=== PATIENT | female | born 1965 | race Caucasian/White ===

== ENCOUNTER 2017-01-23 06:08 | Day surgery (SDC) | payer OTHER ==
[~2017-01-23] VITALS: Ht 152.4 cm; Wt 101.8 kg
[~2017-01-23 06:08] MED LIST: ALBU8HFA IH; AMLO2.5T PO; ASPI81TA42 PO; ATEN50TA PO; ATOR40TA28 PO; CARV3 PO; FAMO20 PO; FLUT16H NASAL; GABA-531 PO; HYDR25TA PO; LEVO200 PO; MELO-273 PO; METF500T4 PO; MOME13HF IH; OMEP20 PO; PRED10 PO; TEMA15CA PO; TRIAMCINOLONE CREAM TP
[2017-01-23] MEDS ORDERED: SODIUM CHLORIDE 0.9% 1,000 ML IV ONE ×2 (06:16→07:00)
[2017-01-23] MEDS ORDERED: LOSA25TA21 PO (06:27)
[2017-01-23] MEDS ORDERED: LOSA50TA37 PO (06:33)
[2017-01-23 07:02] LABS: GLUCOSE,POINT OF CARE 95 MG/DL (70-110)
[2017-01-23] MEDS ORDERED: FentaNYL CITRATE-PF 100 MCG/2 ML VIAL ONE (07:56)
[2017-01-23] MEDS ORDERED: MIDAZOLAM HCL 2 MG/2 ML VIAL ONE (07:56)
[2017-01-23] MEDS ORDERED: MethylPREDNISolone SOD SUCC 125 MG/2 ML VIAL IVP ONE (08:45)
[2017-01-23] MEDS ORDERED: MethylPREDNISolone SOD SUCC 125 MG/2 ML VIAL ONE (08:45)
[2017-01-23] MEDS ORDERED: LIDOCAINE HCL 2% 30 ML JELLY TP ONE (17:30)
[2017-01-23] MEDS ORDERED: EPINEPHrine 1:1,000 [1 MG/ML] AMP ET ONE (17:30)
[2017-01-23] MEDS ORDERED: LIDOCAINE HCL 4% 50 ML SOLUTION TP ONE (17:30)
[2017-01-23] MEDS ORDERED: ALBUTEROL SULFATE 2.5 MG/0.5 ML NEB SOLUTION NEB ONE (17:30)
[2017-01-23] MEDS ORDERED: BENZOCAINE 20% 50 MCG/SPRAY 57 GM TP ONE (17:30)
[2017-01-23] MEDS ORDERED: OXYGEN THERAPY IH SCH (20:00)
== END 2017-01-23 10:10 | disposition home or self-care (01) ==
LOC: SURGERY 06:08
PROVIDERS: ATTEND Internal Medicine Critical Care Medicine
DX: J38.4 Edema of larynx (principal); B37.0 Candidal stomatitis; E11.9 Type 2 diabetes mellitus without complications; J45.909 Unspecified asthma, uncomplicated; Z87.891 Personal history of nicotine dependence; Z96.89 Presence of other specified functional implants; Z87.442 Personal history of urinary calculi
CPT/HCPCS: 31623; 31624; 71010; 82962; 87015; 87070; 87101; 87205; 87220; 93005; J0171; J2250; J2930; J3010; J7030; 87147; 88108; 88312

== ENCOUNTER 2025-07-30 06:21 | Day surgery (SDC) | payer OTHER ==
[~2025-07-30] VITALS: Ht 154.9 cm; Wt 54.5 kg
[~2025-07-30 06:21] MED LIST changes: +ALBU18HF12 IH; -ALBU8HFA IH; -AMLO2.5T PO; +AMLO2.5T96 PO; +ASPI81TA40 PO; -ASPI81TA42 PO; +ATEN-72 PO; -ATEN50TA PO; -ATOR40TA28 PO; -FLUT16H NASAL; +FLUT16SP NASAL; +GABA-1181 PO; -GABA-531 PO; -HYDR25TA PO; +HYDR25TA2 PO; +LOSA-382 PO; +MELO-107 PO; -MELO-273 PO; +METF-1211 PO; -METF500T4 PO; -MOME13HF IH; +MOME13HF11 IH; +OMEP-148 PO; -OMEP20 PO; +PRED-729 PO; -PRED10 PO; +SODIUM CHLORIDE 0.9% 1,000 ML ONE
[2025-07-30] MEDS ORDERED: FOLI-130 PO (06:45)
[2025-07-30] MEDS ORDERED: ASPI-1450 PO (06:45)
[2025-07-30] MEDS ORDERED: FentaNYL CITRATE PF 100 MCG/2 ML VIAL ONE (07:51)
[2025-07-30] MEDS ORDERED: MIDAZOLAM HCL 2 MG/2 ML VIAL ONE (07:52)
[2025-07-30] MEDS: SODIUM CHLORIDE 0.9% 1,000 ML IV ONE (07:58)
[2025-07-30 08:01] LABS: GLUCOMETER DEV NAME(LOC) SDS.; GLUCOSE,POINT OF CARE 70 MG/DL (70-110)
[2025-07-30 10:04] VITALS: PULSE 69; RESP 12; O2SAT 99
[2025-07-30] MEDS ORDERED: LIDOCAINE 4% 50 ML SOLUTION ONE (12:00)
[2025-07-30] MEDS ORDERED: LIDOCAINE 2% 11 ML JELLY ONE (12:00)
[2025-07-30] MEDS ORDERED: ALBUTEROL SULFATE 2.5 MG/0.5 ML NEB SOLUTION NEB ONE ×2 (12:00)
== END 2025-07-30 13:30 | disposition home or self-care (01) ==
LOC: SURGERY 06:21
PROVIDERS: ATTEND Internal Medicine Critical Care Medicine
DX: J38.4 Edema of larynx (principal); B37.0 Candidal stomatitis; R05.3 Chronic cough; R06.2 Wheezing; R04.2 Hemoptysis; Z90.49 Acquired absence of other specified parts of digestive tract; Z98.890 Other specified postprocedural states; Z98.84 Bariatric surgery status; G47.33 Obstructive sleep apnea (adult) (pediatric); E78.00 Pure hypercholesterolemia, unspecified; Z87.442 Personal history of urinary calculi; Z79.82 Long term (current) use of aspirin; Z86.73 Personal history of transient ischemic attack (TIA), and cerebral infarction without residual deficits
CPT/HCPCS: 31623; 82962; 87206; 87101; 87220; 87070; 31624; 71045; 87015; J3010; J2250; J2919; J7030; 88108; J7613; Z7610